=== PATIENT | male | born 1985 | race Two or more races ===

== ENCOUNTER 2021-07-22 06:34 | Emergency (ER) | payer OTHER ==
[~2021-07-22] VITALS: Ht 177.8 cm; Wt 74.8 kg
[2021-07-22] MEDS ORDERED: Percocet 5-3251 EACH PO (08:36)
== END 2021-07-22 08:51 | disposition home or self-care (01) ==
LOC: ER 06:34
DX: S09.90XA Unspecified injury of head, initial encounter (principal); S13.4XXA Sprain of ligaments of cervical spine, initial encounter; S23.3XXA Sprain of ligaments of thoracic spine, initial encounter; V49.9XXA Car occupant (driver) (passenger) injured in unspecified traffic accident, initial encounter
CPT/HCPCS: 70450; 71045; 72125; 72128; 99284-25; A9270